=== PATIENT | male | born 1985 | race Hispanic/Latino ===

== ENCOUNTER 2016-09-18 06:28 | Inpatient (IN) | payer MEDICAID ==
[2016-09-18] MEDS ORDERED: Sodium Chloride 0.9% 1,000 ML IV STA (06:57)
[2016-09-18] MEDS ORDERED: HYDROmorphone 0.5 mg/0.5 ml ISec IVP STA (07:13)
[2016-09-18 07:20] LABS: BASO % 0.2 % (0.0-2.0); EOS % 0.1 % (0.0-4.0); LYMPH # 1.4 K/uL (1.0-4.3); LYMPH % 9.2 % (20.0-40.0); MEAN CELL VOLUME 88.6 fl (80.0-94.0); MEAN CORPUSCULAR HEMOGLOBIN 29.8 pg (27.0-31.0); MEAN CORPUSCULAR HGB CONC 33.6 g/dL (33.0-37.0); MEAN PLATELET VOLUME 8.3 fl (7.2-11.7); MONO # 0.6 K/uL (0.0-0.8); MONO % 3.8 % (0.0-10.0); NEUT # 13.6 K/uL (1.8-7.0); NEUT % 86.7 % (50.0-75.0); NRBC % 0.1 % (0.0-0.0); PLATELET COUNT 320 K/uL (130-400); RED CELL DISTRIBUTION WIDTH 12.9 % (11.5-14.5); WHITE BLOOD COUNT 15.7 K/uL (4.8-10.8)
[2016-09-18 07:34] LABS: ALB/GLOB RATIO 1.2 (1.0-2.1); ALKALINE PHOSPHATASE 93 U/L (38-126); ALT/SGPT 46 U/L (21-72); AST/SGOT 31 U/L (17-59); BILIRUBIN,TOTAL 0.8 mg/dl (0.2-1.3); BLOOD UREA NITROGEN 14 mg/dl (9-20); CARBON DIOXIDE 27 mmol/L (22-30); CHLORIDE 101 mmol/L (98-107); GFR AFRICAN-AMERICAN > 60; GLUCOSE,RANDOM 120 mg/dL (75-110); LIPASE 89 U/L (23-300); POTASSIUM 3.9 MMOL/L (3.6-5.0); SODIUM 144 mmol/l (132-148); TOTAL PROTEIN 8.4 G/DL (6.3-8.2)
--- NOTE | 2016-09-18 07:39 | ED PDOC ---
HPI: Abdomen Time Seen by Provider: 09/18/16 07:10 Chief Complaint (Nursing): Abdominal Pain Chief Complaint (Provider): Abdominal Pain History Per: Patient History/Exam Limitations: no limitations Onset/Duration Of Symptoms: Hrs (x9 hours ago) Outside of [place] travel?: No Current Symptoms Are (Timing): Constant Context: Food Severity: Severe Pain Scale Rating Of: 10 Location Of Pain/Discomfort: Periumbilical Quality Of Discomfort: Cramping Associated Symptoms: Nausea, Vomiting (x4-5 times). denies: Fever, Diarrhea Exacerbating Factors: None Alleviating Factors: None Additional Complaint(s): Pt is a 31 year old male, with no pertinent past medical history, who presents to the emergency department for severe abdominal pain, that the patient has been experiencing for the past 9 hours. Patient states onset of his pain began at around 22:00 on 09/17/2016 after eating a cheeseburger. The pain is described as a constant, cramping sensation that is localized in the middle of his abdomen and does not radiate elsewhere, and rated as a 10 in severity. Associated nausea and vomiting (x4-5 times since onset) are currently present. Denies a fever or diarrhea. Of note, patient drank Pepto Bismol prior to arrival; however, it provided no relief, prompting his visit to the emergency department. Patient states he has no known drug allergies. PMD: none specified Past Medical History Reviewed: Historical Data, Nursing Documentation, Vital Signs Vital Signs: Last Vital Signs Temp 98.1 F 09/18/16 12:50 Pulse 88 09/18/16 12:50 Resp 18 09/18/16 12:50 BP 118/76 09/18/16 12:50 Pulse Ox 100 09/18/16 12:50 - Medical History PMH: No Chronic Diseases - Surgical History Surgical History: No Surg Hx - Family History Family History: States: No Known Family Hx - Social History Current smoker - smoking cessation education provided: Yes (<10 cigarettes daily ) Alcohol: Occasional Drugs: Denies - Home Medications Home Medications: Ambulatory Orders Medication Instructions Recorded No Known Home Med 09/18/16 - Allergies Allergies/Adverse Reactions: Allergies Allergy/AdvReac Type Severity Reaction Status Date / Time No Known Allergies Allergy Verified 09/18/16 06:33 Review of Systems ROS Statement: Except As Marked, All Systems Reviewed And Found Negative Constitutional: Negative for: Fever Gastrointestinal: Positive for: Nausea, Vomiting (x4-5 times), Abdominal Pain. Negative for: Diarrhea Physical Exam - Reviewed Nursing Documentation Reviewed: Yes Vital Signs Reviewed: Yes - Physical Exam Appears: Positive for: Non-toxic, No Acute Distress Head Exam: Positive for: ATRAUMATIC, NORMOCEPHALIC Skin: Positive for: Normal Color, Warm, Dry Eye Exam: Positive for: Normal appearance, EOMI Neck: Positive for: Normal, Painless ROM Cardiovascular/Chest: Positive for: Regular Rate, Rhythm. Negative for: Murmur Respiratory: Positive for: Normal Breath Sounds. Negative for: Respiratory Distress Gastrointestinal/Abdominal: Positive for: Normal Exam, Bowel Sounds (normal), Soft, Tenderness (periumbilical). Negative for: Guarding, Rebound Extremity: Positive for: Normal ROM. Negative for: Tenderness, Swelling Neurologic/Psych: Positive for: Alert, Oriented - Laboratory Results Result Diagrams: 09/18/16 07:16 09/18/16 07:16 - ECG O2 Sat by Pulse Oximetry: 100 (RA) Pulse Ox Interpretation: Normal Medical Decision Making Medical Decision Makin:10 Initial Impression: Abd pain Diff Diagnosis includes but is not limited to: gastroenteritis, colitis, appendicitis (low suspicion unless early in course) Initial Plan: * CBC * CMP * Lipase * Urinalysis * Dilaudid 0.5 mg IVP * Sodium Chloride 0.9% 1,000 ml IV * Pepcid 20 mg IVP * Zofran Inj 4 mg IV * NPO * Reevaluation 8:25 AM - Pain is now a 6. The pt has high WBC; will get CT. Scribe Attestation: Documented by Tushar Dalton, acting as a scribe for Tim Harp MD. Provider Scribe Attestation: All medical record entries made by the Marcellusibkeaton were at my direction and personally dictated by me. I have reviewed the chart and agree that the record accurately reflects my personal performance of the history, physical exam, medical decision making, and the department course for this patient. I have also personally directed, reviewed, and agree with the discharge instructions and disposition. ED OBSERVATION Date of observation admission: 09/18/16 Time of observation admission: 08:27 - Observation admission statement Patient is being placed in observation because:: Pt is still symptomatic. Will need further studies. - Goals of Observation Goals of observation are:: Improvement of symptoms - Progress Note Progress Note: 09/18/16 10:49 CT completed. Awaiting reading by radiology. 09/18/16 11:28 CT shows appendicitis; surgeon camera person has been paged. Disposition - Clinical Impression Clinical Impression: Acute appendicitis - Patient ED Disposition Is Patient to be Admitted: Yes - Disposition Disposition Time: 11:27 Condition: FAIR - Pt Status Changed To: Hospital Disposition Of: Inpatient - Admit Certification Admit to Inpatient:: After my assessment, the patient will require hospitalization for at least two midnights. This is because of the severity of symptoms shown, intensity of services needed, and/or the medical risk in this patient being treated as an outpatient.
[2016-09-18 08:05] LABS: BASOPHIL 2 % (0-2); NEUTROPHIL 85 % (42-75); TOTAL CELLS COUNTED 100
[2016-09-18 08:06] LABS: GIANT PLATELETS PRESENT; LARGE PLATELETS PRESENT
[2016-09-18] MEDS ORDERED: Iohexol 240 (50 ml) ONE (08:10)
[2016-09-18] MEDS ORDERED: Iohexol 240 (50 ml) PO ONE (08:13)
[2016-09-18 09:42] LABS: RBC URINE 3 /hpf (0-3); URINE BACTERIA RARE (<OCC); URINE BILIRUBIN NEGATIVE (NEGATIVE); URINE BLOOD NEGATIVE (NEGATIVE); URINE COLOR YELLOW (YELLOW); URINE GLUCOSE (UA) NEG (Normal); URINE KETONE 20 mg/dL (NEGATIVE); URINE LEUKOCYTE ESTERASE NEG Leu/uL (Negative); URINE PROTEIN 30 mg/dL (NEGATIVE); URINE UROBILINOGEN 0.2-1.0 mg/dL (0.2-1.0); WBC URINE 1 /hpf (0-5)
[2016-09-18] MEDS ORDERED: Iohexol 300 100 ML IJ ONE (09:55)
[2016-09-18] MEDS ORDERED: Sodium Chloride 0.9% 50 ML IV ONE (09:55)
--- NOTE | 2016-09-18 11:13 | CT ---
PROCEDURE: CT Abdomen and Pelvis with contrast HISTORY: c/o abdominal pain and with high WBC count COMPARISON: 05/23/2016. TECHNIQUE: CT scan of the abdomen and pelvis was performed after intravenous administration of contrast. Oral contrast was administered. Coronal and sagittal reformatted images were obtained. Contrast dose: 95 mL Omnipaque 300 Radiation dose: Total exam DLP = 633.33 mGy-cm. This CT exam was performed using one or more of the following dose reduction techniques: Automated exposure control, adjustment of the mA and/or kV according to patient size, and/or use of iterative reconstruction technique. FINDINGS: LOWER THORAX: The lung bases are clear. LIVER: The liver is normal in size and there is homogeneous enhancement. There is no intrahepatic biliary ductal dilatation. GALLBLADDER AND BILE DUCTS: There are no calcified gallstones. PANCREAS: The pancreas is normal in size without focal mass or ductal dilatation. SPLEEN: The spleen is normal in size. There is no focal mass. ADRENALS: Both adrenal glands are normal in size without discrete nodule. KIDNEYS AND URETERS: Both kidneys are normal in size and there is homogeneous enhancement without hydronephrosis or focal mass. VASCULATURE: Unremarkable. No aortic aneurysm. BOWEL: The small bowel loops are normal in caliber. There is moderate amount of stool scattered throughout the colon. There is no bowel wall thickening, dilatation or obstruction. APPENDIX: The appendix is dilated and measures 9 mm in transverse diameter, there is mild wall thickening and enhancement with mild surrounding inflammatory changes. No perforation or abscess. PERITONEUM: No free fluid. No free air. LYMPH NODES: There are mildly enlarged mesenteric lymph nodes in the right lower quadrant, likely reactive. BLADDER: Grossly normal in appearance. REPRODUCTIVE: The prostate gland is normal in size. BONES: No acute fracture. Within normal limits for the patient's age. OTHER FINDINGS: None. IMPRESSION: Acute appendicitis. No evidence of perforation or abscess.
[2016-09-18] MEDS ORDERED: ceFAZolin 2 GM in Sodium Chloride 0.9% 100 ML IVPB ONE (11:40)
--- NOTE | 2016-09-18 12:52 | CP.SDSHP ---
Same Day Surgery H & P - History Proposed Procedure: laparoscopic appendectomy - Previous Medical/Surgical History Pain: 4.Moderate Pain - Allergies Allergies: Allergies No Known Allergies Allergy (Verified 09/18/16 06:33) - Physical Exam Vital Signs: Vital Signs 09/18/16 09/18/16 09/18/16 11:36 12:04 12:48 Temperature 98.1 F 98.1 F Pulse Rate 88 88 Respiratory 18 18 Rate Blood Pressure 118/76 118/76 O2 Sat by Pulse 100 100 Oximetry - {Optional Preform as Required} Abdomen: Other (right lower quadrant pain, guarding no rebound) - Impression Impression: acute appendicitis Pt. Evaluated Today:Candidate for Anesthesia & Procedure: Yes - Date & Time Date: 09/18/16 Time: 12:00 Short Stay Discharge - Short Stay Discharge Admitting Diagnosis/Reason for Visit: ACUTE APPENDICITIS Disposition: HOME/ ROUTINE
[2016-09-18] MEDS ORDERED: Rocuronium 10 mg/ml (5 ml) ONE (12:53)
[2016-09-18] MEDS ORDERED: Neostigmine Methylsulfate 3mg/3ml Syringe IV ONE (12:53)
[2016-09-18] MEDS ORDERED: Succinylcholine 200 mg/10 ml Inj IV ONE (12:54)
[2016-09-18] MEDS ORDERED: Propofol 10 mg/ml Inj (20 ML) ONE (12:56)
[2016-09-18] MEDS ORDERED: Lactated Ringer's 1,000 ML IV ONE ×2 (13:00→13:43)
--- NOTE | 2016-09-18 13:40 | RAD ---
HISTORY: pre-op CXR COMPARISON: 09/04/2014. FINDINGS: LUNGS: The lungs are well inflated and clear. PLEURA: No significant pleural effusion identified, no pneumothorax apparent. CARDIOVASCULAR: Normal. OSSEOUS STRUCTURES: No significant abnormalities. VISUALIZED UPPER ABDOMEN: Normal. OTHER FINDINGS: None. IMPRESSION: No active pulmonary disease.
[2016-09-18] MEDS ORDERED: Bupivacaine 0.5% Inj(30mL) IJ ONE (13:44)
--- NOTE | 2016-09-18 14:09 | OP ---
PROCEDURE DATE: 09/18/2016 PREOPERATIVE DIAGNOSIS: Acute appendicitis. POSTOPERATIVE DIAGNOSIS: Acute appendicitis. SURGEON: Pb Acosta MD ANIMAL PATHOLOGIST: Dr. Chung. ANESTHESIA: General endotracheal. ANESTHESIOLOGIST: Dr. Cuello. OPERATIVE FINDINGS: Acute appendicitis. OPERATION: Laparoscopy and laparoscopic appendectomy. SURGICAL FINDINGS: Acute appendicitis. PREPARATION AND PROCEDURE: The patient was brought to the Operating Room and after successful induct ion of general endotracheal anesthesia was obtained and a Cabral catheter inserted, the abdomen was pr epped and draped in the usual manner. A periumbilical Veress needle was inserted and making sure isabella t it was in the intra-abdominal cavity, adequate pneumoperitoneum was obtained. The needle was remov ed. A periumbilical incision was made inserting a 10 mm trocar and doing a full laparoscopy. Under direct visualization, a 5 mm trocar was inserted in the suprapubic region. Dissection was carried ou t in the right lower quadrant. There was obvious acute appendicitis. A 12 mm trocar was inserted in the left lower quadrant after making an incision under direct visualization. At this point, graspin g the tip of the appendix, dissection was carried out at the base. An Endo-ZOYA was used for the base of the appendix. This was a blue cartridge, a GI cartridge, and the base of the appendix was divide d. At this point, the mesoappendix was visualized. This was then stapled using a vascular Endo-ZOYA. At this point, the appendix with the mesoappendix were placed in an Endo-bag. The area was copious ly irrigated and suctioned. The Endo-bag was brought out with the appendix through the left lower qu adrant incision. At this point, making sure that hemostasis was excellent, all trocars were removed under direct visualization. The left lower quadrant incision and the incision in the umbilicus were closed with #0 Vicryl and the all the skin incisions were closed with nylon. Marcaine was used for i nfiltration. POSTOPERATIVE CONDITION: The patient tolerated the procedure well and was transferred to [facility] in good general status. insert a infiltrated with appendectomy. Pb Acosta MD cc: 72 TT: 09/18/2016 14:08:47 jn
[2016-09-18] MEDS ORDERED: Oxycodone/Acetaminophen 5/325 mg Tab PO PRN (14:19)
--- NOTE | 2016-09-18 14:24 | PCM.SURG1 ---
Surgeon's Initial Post Op Note - Surgeon's Notes Surgeon: Dr. Acosta Enterer: Dr. Chung PGY-2 Type of Anesthesia: General Endo, Local Pre-Operative Diagnosis: Acute appendicitis Operative Findings: see operative report Post-Operative Diagnosis: Acute appendicitis Operation Performed: Laparoscopic appendectomy Specimen/Specimens Removed: appendix Estimated Blood Loss: EBL {In ML}: 10 Blood Products Given: N/A Drains Used: No Drains Post-Op Condition: Good Date of Surgery/Procedure: 09/18/16 Time of Surgery/Procedure: 14:24
[2016-09-18] MEDS ORDERED: Lactated Ringer's 1,000 ML IV SCH (14:30)
[2016-09-18] MEDS ORDERED: Piperacillin/Tazobact 3.375 GM in Sodium Chloride 0.9% 100 ML IVPB SCH (16:00)
--- NOTE | 2016-09-18 18:16 | CP.SDSHP ---
Same Day Surgery H & P - History Proposed Procedure: Laparoscopic appendectomy Pre-Op Diagnosis: Acute appendicitis - Allergies Allergies: Allergies No Known Allergies Allergy (Verified 09/18/16 06:33) - Physical Exam Vital Signs: Vital Signs 09/18/16 09/18/16 09/18/16 12:04 12:48 12:50 Temperature 98.1 F 98.1 F 98.1 F Pulse Rate 88 88 88 Respiratory 18 18 18 Rate Blood Pressure 118/76 118/76 118/76 O2 Sat by Pulse 100 100 Oximetry 09/18/16 09/18/16 09/18/16 13:31 14:15 14:30 Temperature 97.1 F L 97.0 F L Pulse Rate 84 83 Respiratory 19 23 Rate Blood Pressure 133/66 125/81 O2 Sat by Pulse 100 100 100 Oximetry 09/18/16 09/18/16 09/18/16 14:45 15:00 15:03 Temperature 97.0 F L 97.2 F L 98 F Pulse Rate 71 97 H 77 Respiratory 20 17 20 Rate Blood Pressure 145/100 H 159/68 H 132/81 O2 Sat by Pulse 100 100 99 Oximetry 09/18/16 09/18/16 09/18/16 15:15 16:03 16:43 Temperature 97.0 F L 97.7 F 98 F Pulse Rate 83 78 77 Respiratory 19 20 18 Rate Blood Pressure 155/66 H 130/78 132/81 O2 Sat by Pulse 100 98 99 Oximetry Neuro: WNL Heart: WNL Lungs: WNL GI: Other (RLQ pain) - Impression Impression: Appendicitis Pt. Evaluated Today:Candidate for Anesthesia & Procedure: Yes Short Stay Discharge - Short Stay Discharge Admitting Diagnosis/Reason for Visit: ACUTE APPENDICITIS Disposition: HOME/ ROUTINE Follow-up: Follow up with Dr. Acosta in his office in 1-2 weeks, call to make appointment Instructions: Laparoscopic Appendectomy (DC) Additional Instructions (Diet, Activity): Leave top dressings on for 48 hours after surgery, then you may remove them. Leave steri strips in place, they will fall off on their own over time You may shower after top dressings are removed, but do not take a bath or swim Avoid heavy lifting for 4 weeks You may resume regular diet You may take Percocet as prescribed for pain
[2016-09-18 18:56] VITALS: BP 130/80; PULSE 76; RESP 20; TEMP 97; O2SAT 97
== END 2016-09-18 19:00 | disposition home or self-care (01) | DRG 883 ==
LOC: H.ER 06:28 → H.EROBSV 08:26 → H.ERHOLD 11:31 → OBSVTOIN 11:31 → H.ERHOLD 12:38 → H.MEDSURG1 15:40
PROVIDERS: ADMIT Surgery; ATTEND Surgery
PROC: 0DTJ4ZZ Resection of Appendix, Percutaneous Endoscopic Approach (ICD-10-PCS; principal; 2016-09-18 11:00)
DX: K35.80 Unspecified acute appendicitis (principal); F17.210 Nicotine dependence, cigarettes, uncomplicated

== ENCOUNTER 2018-06-25 16:31 | Emergency (ER) | payer MEDICAID, OTHER ==
[2018-06-25 16:38] VITALS: O2SAT 99
[2018-06-25 16:41] VITALS: TEMP 98.2
--- NOTE | 2018-06-25 17:23 | ED PDOC ---
HPI: Chest Pain Time Seen by Provider: 06/25/18 17:18 Chief Complaint (Nursing): Chest Pain Chief Complaint (Provider): Chest Pain History Per: Patient History/Exam Limitations: no limitations Onset/Duration Of Symptoms: Days (2x days), Waxing/Waning Current Symptoms Are (Timing): Gone Now Severity: Moderate Additional Complaint(s): 32 year old male with no pertinent past medical history presents to the ED for an evaluation of mid-sternal chest pain that he began to experience 2x days ago while smoking a cigarette. Patient reports that it has been waxing and waning since, and today he experienced it again after eating a cheeseburger, with the pain radiating down his arm while he was driving to his mother's. Patient reports that he has quit smoking and denies having a pleuritic component, but says that it feels really bad. Patient denies having a history of diabetes or hypertension. PMD: None provided. Past Medical History Reviewed: Historical Data, Nursing Documentation, Vital Signs Vital Signs: Last Vital Signs Temp 98.2 F 06/25/18 16:36 Pulse 84 06/25/18 17:06 Resp 20 06/25/18 16:36 BP 141/80 06/25/18 16:36 Pulse Ox 99 06/25/18 16:36 CHRISTIE Report Viewed: Yes - Medical History PMH: No Chronic Diseases - Surgical History Surgical History: Appendectomy - Family History Family History: States: No Known Family Hx - Social History Current smoker - smoking cessation education provided: Yes Alcohol: Social Drugs: Denies - Home Medications Home Medications: Ambulatory Orders Medication Instructions Recorded Naproxen 375 mg PO Q8 PRN #21 tablet 06/25/18 - Allergies Allergies/Adverse Reactions: Allergies Allergy/AdvReac Type Severity Reaction Status Date / Time No Known Allergies Allergy Verified 09/18/16 06:33 Review of Systems ROS Statement: Except As Marked, All Systems Reviewed And Found Negative Cardiovascular: Positive for: Chest Pain (mid-sternal, pain radiating down arm) Respiratory: Negative for: Pleuritic Pain Physical Exam - Reviewed Nursing Documentation Reviewed: Yes Vital Signs Reviewed: Yes - Physical Exam Appears: Positive for: Well, Non-toxic, No Acute Distress Head Exam: Positive for: ATRAUMATIC, NORMOCEPHALIC Skin: Positive for: Normal Color, Warm, Dry Cardiovascular/Chest: Positive for: Regular Rate, Rhythm Respiratory: Positive for: Normal Breath Sounds Gastrointestinal/Abdominal: Positive for: Normal Exam, Soft. Negative for: Tenderness Rectal: Positive for: Other (arm pain not reproducible in any position) Neurologic/Psych: Positive for: Alert, Oriented (3x) - Laboratory Results Result Diagrams: 06/25/18 17:35 06/25/18 17:35 - ECG ECG: Positive for: Interpreted By Me, Viewed By Me ECG Rhythm: Positive for: Sinus Rhythm. Negative for: ST/T Changes, Nonspecific Changes Rate: 73 O2 Sat by Pulse Oximetry: 99 (RA) Pulse Ox Interpretation: Normal - Progress ED Course And Treament: pepcid 20 mg iv x 1 dose without relief. toradol 15 mg ivx 1 dose for pain troponin #2 wnl Medical Decision Making Medical Decision Makin:18 Initial impression: 32 year old male with chest pain Initial plan: * XRay chest * EKG * cmp * lipase * magnesium * troponin I * cbc with differential * d dimer * pepcid 20 mg IVP * reevaluation Scribe Attestation: Documented byGriselda Suarez, acting as a scribe for Deandra Jiang PA-C. Provider Scribe Attestation: All medical record entries made by the Scribe were at my direction and personally dictated by me. I have reviewed the chart and agree that the record accurately reflects my personal performance of the history, physical exam, me dical decision making, and the department course for this patient. I have also personally directed, reviewed, and agree with the discharge instructions and disposition. Disposition - Clinical Impression Clinical Impression: Chest pain - Patient ED Disposition Is Patient to be Admitted: No - Disposition Referrals: [facility] [Outside] Disposition: Routine/Home Disposition Time: 22:35 Condition: FAIR Prescriptions: Naproxen 375 mg PO Q8 PRN #21 tablet PRN Reason: Pain, Moderate (4-7) Instructions: Chest Pain Forms: [facility] ED School/Work Excuse
--- NOTE | 2018-06-25 18:00 | RAD ---
Date of service: 06/25/2018 HISTORY: CP COMPARISON: Comparison made with chest radiograph 09/18/2016. FINDINGS: LUNGS: No active pulmonary disease. PLEURA: No significant pleural effusion identified, no pneumothorax apparent. CARDIOVASCULAR: No aortic atherosclerotic calcification present. Normal cardiac size. No pulmonary vascular congestion. OSSEOUS STRUCTURES: No significant abnormalities. VISUALIZED UPPER ABDOMEN: Normal. OTHER FINDINGS: None. IMPRESSION: No active disease.
[2018-06-25 18:22] LABS: BASO # 0.1 K/uL (0.0-0.2); EOS # 0.1 K/uL (0.0-0.7); EOS % 1.4 % (0.0-4.0); LYMPH # 1.8 K/uL (1.0-4.3); LYMPH % 28.2 % (20.0-40.0); MEAN CELL VOLUME 89.6 fl (80.0-94.0); MEAN CORPUSCULAR HEMOGLOBIN 29.9 pg (27.0-31.0); MEAN CORPUSCULAR HGB CONC 33.4 g/dL (33.0-37.0); MEAN PLATELET VOLUME 8.6 fl (7.2-11.7); MONO # 0.5 K/uL (0.0-0.8); MONO % 7.4 % (0.0-10.0); NRBC % 0.1 % (0.0-0.0); RBC 5.02 Mil/uL (4.40-5.90); WHITE BLOOD COUNT 6.4 K/uL (4.8-10.8)
[2018-06-25 18:37] LABS: ALB/GLOB RATIO 1.3 (1.0-2.1); ALBUMIN 4.6 g/dL (3.5-5.0); ALT/SGPT 47 U/L (21-72); AST/SGOT 33 U/L (17-59); BLOOD UREA NITROGEN 17 mg/dl (9-20); CALCIUM 9.7 mg/dL (8.4-10.2); GFR NON-AFRICAN AMERICAN > 60; LIPASE 85 U/L (23-300)
[2018-06-25 22:55] VITALS: BP 119/66; PULSE 74; RESP 12
--- NOTE | 2018-06-26 10:11 | CARD ---
APPROVED REPORT Date of service: 06/25/2018 EKG Measurement Heart [id number] <Conclusion> Normal sinus rhythm Normal Electrocardiogram
== END 2018-06-25 22:55 | disposition home or self-care (01) ==
LOC: H.ER 16:31
DX: R07.89 Other chest pain (principal)
CPT/HCPCS: 71045; 80053; 83690; 83735; 84484; 85025; 85378; 93005; 96374; 96375; 99284; J1885